=== PATIENT | female | born 1990 | race Caucasian/White ===

== ENCOUNTER 2018-12-20 18:13 | Emergency (ER) | payer SELFPAY, OTHER ==
[2018-12-20] MEDS: METHOCARBAMOL 750 MG TAB PO (21:23)
[2018-12-20] MEDS: ACETAMINOPHEN 325 MG TAB PO (21:23)
== END 2018-12-20 22:12 | disposition home or self-care (01) ==
LOC: FTE 18:13
DX: S39.92XA Unspecified injury of lower back, initial encounter (principal); X50.0XXA Overexertion from strenuous movement or load, initial encounter; Y92.9 Unspecified place or not applicable
CPT/HCPCS: 99283